=== PATIENT | female | born 1960 | race Hispanic/Latino ===

== ENCOUNTER → 2021-02-23 | Day surgery (SDC) | payer OTHER ==
[2021-02-21 11:57] LABS: ANION GAP 14.6 mmol/L (8-16); CALCIUM 9.4 mg/dL (8.4-10.2); CREATININE, SERUM 0.66 mg/dL (0.57-1.11); POTASSIUM 4.6 mmol/L (3.5-5.1)
[~2021-02-23] MED LIST: AMLODIPINE BESY10 MG PO; CEFTRIAXONE 1 GM VIAL ONE; DEXAMETHASONE SOD PHOS INJ 4 MG/ML SDV ONE; EPHEDRINE SULFATE INJ 50 MG/ML VIAL ONE; FENTANYL CITRATE/PF 100MCG/2 ML INJ ONE; LEVOTHYROXINE75 MCG PO; LIDOCAINE HCL 2% LOCAL INJ 5 ML SDV VIAL INJ ONE; LISINOPRIL5 MG PO; METFORMIN HCL500 MG PO; MIDAZOLAM HCL 2 MG/2 ML VIAL ONE; ONDANSETRON HCL INJ 2MG/ML 2ML 2 MG/ML VIAL ONE; POVIDONE IODINE 0.05% 0.05 % ML PO ONE; PROPOFOL IV EMULSION 10 MG/ML 20 ML VIAL ONE; SEVOFLURANE INHAL SOLN 250 ML PEN BTL ONE; SODIUM CHLORIDE 0.9% 50ML 50 ML ONE
[2021-02-23 09:25] VITALS: BP 129/66
== END | disposition home or self-care (01) ==
LOC: OR 06:19
PROVIDERS: ATTEND Urology
DX: N20.0 Calculus of kidney (principal); I10 Essential (primary) hypertension; E11.9 Type 2 diabetes mellitus without complications; Z01.812 Encounter for preprocedural laboratory examination; Z01.818 Encounter for other preprocedural examination; Z20.822 Contact with and (suspected) exposure to COVID-19; Z79.84 Long term (current) use of oral hypoglycemic drugs; Z85.3 Personal history of malignant neoplasm of breast
CPT/HCPCS: 36415 ×2; 50590; 74018; 80048; 82948; 93005; J0696; J1100; J2001; J2250; J2405; J2704; J3010; U0002